=== PATIENT | female | born 1935 | race Caucasian/White ===

== ENCOUNTER 2017-01-20 11:42 | Emergency (ER) | payer MEDICARE ==
[~2017-01-20] VITALS: Ht 167.6 cm; Wt 51.3 kg
[~2017-01-20 11:42] MED LIST: LEVO.075 PO; MACR100C37 PO
[2017-01-20 12:00] VITALS: BP 106/47; PULSE 68; RESP 18; TEMP 97.7; O2SAT 96
[2017-01-20] MEDS ORDERED: LEVO75TA3 PO (12:09)
[2017-01-20] MEDS ORDERED: VENTAER INH (12:24)
[2017-01-20] MEDS ORDERED: ZITHTAB PO (12:24)
--- NOTE | 2017-01-20 12:26 | PD ---
HPI Chief Complaint: Cold / Flu Symptoms Time Seen by Provider: 12:03 Travel History International Travel<30 days: No Contact w/Intl Traveler<30days: No Traveled to known affect area: No History of Present Illness HPI This patient complains of cough. She is has some congestion. Denies fever or chest pain. She is a lifelong smoker. He denies history of lung disease. Severity is mild PFSH Past Medical History Diminished Hearing: No Immunizations Current: Yes Thyroid Disease: Yes Tetanus Vaccination: > 5 Years Influenza Vaccination: No ?: Not Menopausal: Yes Past Surgical History Appendectomy: Yes Social History Alcohol Use: No Tobacco Use: Yes Substance Use: No Allergies-Medications (Allergen,Severity, Reaction): Coded Allergies: No Known Allergies (Unverified , 01/20/17) Reported Meds & Prescriptions Reported Meds & Active Scripts Active Reported Levothyroxine (Levothyroxine Sodium) 75 Mcg Tab 75 Mcg PO DAILY Review of Systems General / Constitutional: No: Fever HENT: No: Headaches Respiratory: Positive: Cough Gastrointestinal: No: Vomiting Physical Exam Narrative GENERAL: Well-nourished, well-developed patient in no apparent distress. SKIN: Focused skin assessment reveals no rash and nodules. Skin is Warm and dry. HEAD: Atraumatic. Normocephalic. EYES: Pupils equal and round. No scleral icterus. No injection or drainage. ENT: No nasal bleeding or discharge. Mucous membranes pink and moist. NECK: Trachea midline. No JVD. CARDIOVASCULAR: Regular rate and rhythm. No murmur appreciated. RESPIRATORY: No accessory muscle use. Clear to auscultation. Breath sounds equal bilaterally. GASTROINTESTINAL: Abdomen soft, non-tender, nondistended. Hepatic and splenic margins not palpable. MUSCULOSKELETAL: No obvious deformities. No clubbing. No cyanosis. No edema. NEUROLOGICAL: Awake and alert. No obvious cranial nerve deficits. Motor grossly within normal limits. Normal speech. PSYCHIATRIC: Appropriate mood and affect; insight and judgment normal. Data Data Last Documented VS Vital Signs Date Time Temp Pulse Resp B/P Pulse Ox O2 Delivery O2 Flow Rate FiO2 01/20/17 12:05 80 16 96 Room Air 01/20/17 12:00 97.7 106/47 MDM Medical Decision Making Medical Screen Exam Complete: Yes Emergency Medical Condition: Yes Medical Record Reviewed: Yes Differential Diagnosis Bronchitis, COPD, pneumonia Narrative Course I have reviewed the patient's electronic medical record. I suspect this patient has some degree of COPD given her lifelong smoking. She likely has bronchitis on top of that. I wrote her an albuterol inhaler and a Zithromax course. She should follow-up with her physician and should stop her smoking Diagnosis Primary Impression: Bronchitis Additional Instructions: Stop smoking. The patient was advised to follow up with their physician and return if they worsen. Med/Other Pt SpecificInfo: Prescription(s) given Scripts Albuterol 18 GM Inh (Ventolin Hfa 18 GM Inh)90 Mcg/Act Aer2 Puff INH Q4H PRN ( SHORTNESS OF BREATH) #1 INHALER Ref 0 Prov:Ciro Vanessa MD 01/20/17 Azithromycin (Zithromax Z-Justo)250 Mg [id number] Mg PO DIRECTED #1 DSPK Ref 0 500 MG (2 tabs) day 1, then 1 tab days 2-5. Prov:Ciro Vanessa MD 01/20/17 Disposition: 01 DISCHARGE HOME Condition: Stable Ciro Vanessa MD Jan 20, 2017 12:26
== END 2017-01-20 12:32 | disposition home or self-care (01) ==
LOC: PHED 11:42
DX: J40 Bronchitis, not specified as acute or chronic (principal); Z72.0 Tobacco use
CPT/HCPCS: 99283

== ENCOUNTER 2017-04-17 16:55 | Emergency (ER) | payer MEDICARE ==
[~2017-04-17 16:55] MED LIST changes: -LEVO.075 PO; +LEVO75TA3 PO; -MACR100C37 PO; +VENTAER INH; +ZITHTAB PO
[2017-04-17 17:03] VITALS: BP 125/64; PULSE 76; RESP 20; TEMP 98.3; O2SAT 98
[2017-04-17] MEDS ORDERED: BACT400T PO (17:21)
--- NOTE | 2017-04-17 17:22 | PD ---
HPI Chief Complaint: Cash Clerk Problem/Complaint Time Seen by Provider: 17:05 Travel History International Travel<30 days: No Contact w/Intl Traveler<30days: No Traveled to known affect area: No History of Present Illness HPI The patient is a 82-year-old female who presents to the emergency department for vaginal discomfort. The patient has a history of previous cystocele/latter prolapse and had a pessary at one time, however, remove it several years ago. Over the last several days the patient has been getting up around the house and ambulating, has had some increased discomfort in the vaginal area with pressure. The patient saw her primary physician who diagnosed a UTI, without performing a UA, placed her on Bactrim. However, the patient now has increasing pressure and feels that there is something coming out of the vagina when she is ambulatory, very similar to her previous cystocele. The patient denies any nausea, vomiting, diarrhea, or change in bowel patterns. PFSH Past Medical History Diminished Hearing: No Immunizations Current: Yes Thyroid Disease: Yes Influenza Vaccination: No ?: Not Menopausal: Yes Past Surgical History Appendectomy: Yes Social History Alcohol Use: No Tobacco Use: Yes (10/10 PPD) Substance Use: No Allergies-Medications (Allergen,Severity, Reaction): Coded Allergies: No Known Allergies (Unverified , 01/20/17) Reported Meds & Prescriptions Reported Meds & Active Scripts Active Ventolin Hfa 18 GM Inh (Albuterol Sulfate) 90 Mcg/Act Aer 2 Puff INH Q4H PRN Reported Bactrim (Sulfamethoxazole-Trimethoprim) 400-80 Mg Tab 1 Tab PO BID Levothyroxine (Levothyroxine Sodium) 75 Mcg Tab 75 Mcg PO DAILY Review of Systems Except as stated in HPI: all other systems reviewed are Neg Cardiovascular: No: Chest Pain or Discomfort Respiratory: No: Shortness of Breath Gastrointestinal: No: Nausea, Vomiting, Diarrhea, Abdominal Pain, Constipation Genitourinary: Positive: Other (as noted in the history of present illness) Physical Exam Narrative GENERAL: Awake, alert, nontoxic-appearing 82-year-old female who appears her stated age and is in no acute respiratory distress. SKIN: Focused skin assessment warm/dry. HEAD: Atraumatic. Normocephalic. EYES: No injection or drainage. ENT: No nasal bleeding or discharge. Mucous membranes pink and moist. NECK: Trachea midline. No JVD. GASTROINTESTINAL: Abdomen soft, non-tender, nondistended. No rebound tenderness. Pelvic exam: Exam was performed in the presence of a female nurse. When the patient areas down, there is visible protrusion of the bladder at the introitus consistent with cystocele. MUSCULOSKELETAL: No obvious deformities. No clubbing. No cyanosis. No edema. NEUROLOGICAL: Awake and alert. No obvious cranial nerve deficits. Motor grossly within normal limits. Normal speech. PSYCHIATRIC: Appropriate mood and affect; insight and judgment normal. Data Data Last Documented VS Vital Signs Date Time Temp Pulse Resp B/P Pulse Ox O2 Delivery O2 Flow Rate FiO2 04/17/17 17:03 98.3 76 20 125/64 98 Orders Urinalysis - C+S If Indicated (04/17/17 17:20) Labs Laboratory Tests Test 04/17/17 17:35 Urine Color YELLOW Urine Turbidity CLEAR Urine pH 6.0 Urine Specific [place] 1.010 Urine Protein NEG mg/dL Urine Glucose (UA) NEG mg/dL Urine Ketones NEG mg/dL Urine Occult Blood MOD Urine Nitrite NEG Urine Bilirubin NEG Urine Leukocyte Esterase MOD Urine RBC 0-3 /hpf Urine WBC 6-8 /hpf Urine Squamous Epithelial 0-5 /hpf Cells Urine Mucus FEW /lpf Microscopic Urinalysis Comment CULT NOT INDICATED MDM Medical Decision Making Medical Screen Exam Complete: Yes Emergency Medical Condition: Yes Medical Record Reviewed: Yes Interpretation(s) Laboratory Tests Test 04/17/17 17:35 Urine Color YELLOW Urine Turbidity CLEAR Urine pH 6.0 Urine Specific [place] 1.010 Urine Protein NEG mg/dL Urine Glucose (UA) NEG mg/dL Urine Ketones NEG mg/dL Urine Occult Blood MOD Urine Nitrite NEG Urine Bilirubin NEG Urine Leukocyte Esterase MOD Urine RBC 0-3 /hpf Urine WBC 6-8 /hpf Urine Squamous Epithelial 0-5 /hpf Cells Urine Mucus FEW /lpf Microscopic Urinalysis Comment CULT NOT INDICATED Differential Diagnosis Differential diagnosis includes cystocele, rectocele, prolapsed uterus, UTI, pelvic floor instability. Narrative Course A pelvic exam was performed in the presence of a female nurse which reveals a cystocele. A UA was sent to lab. The patient is advised to follow-up with her primary physician for referral to gynecology for definitive management, she is also advised to perform Kegel exercises. The patient's UA has 6-8 white blood cells, small leukocyte esterase, and some blood. The patient is artery taking Bactrim and is advised to continue taking the Bactrim. She is also advised to follow-up with her primary physician for referral to school bus driver/mechanic for definitive management. Diagnosis Primary Impression: Female cystocele Patient Instructions: General Instructions Additional Instructions: Follow-up with your primary physician for referral to see gynecology. Performed Kegel exercises. Finish antibiotics as previously directed. Med/Other Pt SpecificInfo: No Change to Meds Disposition: 01 DISCHARGE HOME Condition: Stable Rusty Zarco MD Apr 17, 2017 17:22
[2017-04-17 18:12] LABS: GLUCOSE,URINE NEG (NEG); KETONE, URINE NEG (NEG); NITRITE,URINE NEG (NEG)
[2017-04-17 18:13] LABS: BLOOD, URINE MOD (NEG)
[2017-04-17 18:14] LABS: URINE COLOR YELLOW (YELLW/STRAW)
[2017-04-17 18:15] LABS: MUCUS URINE FEW /lpf (OCC)
[2017-04-17 18:16] LABS: COMMENT (UR) CULT NOT INDICATED; CULTURE IF INDICATED CULT NOT INDICATED; RBC, URINE 0-3 /hpf (0-3); SQUAMOUS EPITHELIAL CELL URINE 0-5 /hpf (0-5)
[2017-04-17 18:45] VITALS: BP 108/68
== END 2017-04-17 18:46 | disposition home or self-care (01) ==
LOC: PHED 16:55
DX: N81.10 Cystocele, unspecified (principal); E07.9 Disorder of thyroid, unspecified; F17.200 Nicotine dependence, unspecified, uncomplicated; Z87.42 Personal history of other diseases of the female genital tract
CPT/HCPCS: 81001; 99284

== ENCOUNTER → 2017-06-28 | Day surgery (SDC) | payer MEDICARE ==
[~2017-06-28] MED LIST changes: +ACETAMINOPHEN/HYDROcodone 325 MG/5 MG TAB ONE; +BACT400T PO; +BUPIVACAINE/EPINEPHRINE 0.25% 50 ML VIAL ONE; +DEXAMETHASONE SOD PHOS 4 MG/ML VIAL IV ONE; +ISOSULFAN BLUE 50 MG/5 ML VIAL SQ ONE; +LACTATED RINGER'S 1000 ML INJ 1,000 ML ONE; +LIDOCAINE HCL 1% PF 5 ML AMPULE OTHER ONE; +MEPERIDINE HCL 25 MG/ML VIAL ONE; +ONDANSETRON HCL 4 MG/2 ML VIAL IV PUSH ONE; +PROPOFOL 200 MG/20 ML AMP IV ONE; +SODIUM CHLORIDE 0.9% 20 ML VIAL ONE; -ZITHTAB PO; +ceFAZolin 2 GM PREMIX 50 ML IV SCH; +ceFAZolin 2 GM PREMIX 50 ML ONE
--- NOTE | 2017-06-28 16:07 | TN ---
cc: DENITA NASH DATE OF SURGERY: 06/28/2017 PREOPERATIVE DIAGNOSIS Invasive ductal carcinoma left breast. POSTOPERATIVE DIAGNOSIS Invasive ductal carcinoma left breast. PROCEDURE PERFORMED 1. Needle-localized left breast lumpectomy. 2. Injection and excision of left axillary sentinel node x2. 3. Placement IORT device. SURGEON Denita Nash MD. INTERNAL COMMUNICATIONS WRITER AN Abraham ANESTHESIA: General LMA COMPLICATIONS None. INDICATIONS FOR PROCEDURE: Ms. Mota is a pleasant 82 year-old female who was noted to have a mammographic abnormality, left breast. She underwent percutaneous biopsy. This was found to be invasive ductal carcinoma. She underwent MRI which showed a very small lesion in the central left breast. She was seen and evaluated and offered lumpectomy. She was then referred to Dr. Franklin where she was considered for whole breast radiation versus partial breast radiation versus intraoperative radiation. She was felt to be a good candidate for intraoperative radiation. The patient and family agreed. She was referred back and surgery was scheduled. DETAILS: The patient was identified, brought to the operating room, placed supine on the operating room table. After adequate general anesthesia was achieved with LMA, the left breast and axilla was prepped and draped in standard surgical fashion. Five cc of isosulfan blue was injected in the periareolar space as well as along the wire localization which occurred the medial left breast at the 9 o'clock position. This was then massaged in the breast. The probe was used to localize the approximate location of the sentinel node. The had been confirmed by radiology and had been marked on the skin. 0.25 percent Marcaine was injected and a transverse incision was made. Dissection was carried down through subcutaneous tissue into the axilla proper. Immediately we identified a blue channel which led directly to a blue node. This was confirmed by the probe to be the sentinel node. An Allis clamp was used to excise the node and surrounding fatty tissue. It was then excised and checked and found an ex vivo count of 688. It was labeled sentinel node #1, blue, count 688. The probe was then reintroduced to the axilla. There was a moderate amount of activity just superior to the initial node. There was no other blue dye that we could appreciate. The two enlarged nodes were identified and grasped with Allis clamp and excised together. These were checked and found to have a 10 second count of 466. They were labeled sentinel node #2, not blue count, 466. Once we did this there was no other significant activity in the axilla. By direct palpation there were no palpable nodes. By direct visualization, I could appreciate no other blue dye. At this point I felt confident we had the sentinel nodes of the left axilla. The wound was copiously irrigated with normal saline solution. It was injected with 10 cc of local anesthetic and then closed in two layers using a 3-0 and 4-0 Vicryl. Attention was now directed to the left breast. The patient had a Y-localization at the 9 o'clock position of the left breast. 0.25% Marcaine was injected and a transverse incision was made directly along the wire. Subcutaneous skin flaps were then raised in all directions. Using a generous margin of breast tissue, all breast tissue was excised down to the level of the base of the wire, with generous margins especially toward the tip of the wire where the lesion was located. It should be noted that the posterior margin was the pectoralis fascia. The specimen was then excised, labeled a short stitch superior, long stitch medial and the wire demarcating the lateral position. The specimen was sent to radiology where Dr. Caldwell called back stating that the mass and clip were present within the specimen. The wound was then copiously irrigated with normal saline solution. Because of the patient's small breasts and the small lumpectomy cavity, we elected to use a 3.5 IORT catheter. This was sized for the cavity and found to be appropriate. A 0-Prolene pursestring suture was then placed along the superior portion of the breast tissue in order to pull it up over the probe. We then checked all margins which were all greater than 7.5 millimeters in all directions. This was then confirmed a second time. The probe was then hooked up to the IORT device and the pursestring suture was then tightened down. We then again checked the margins after the catheter was in place and they were all greater than 7.5 millimeters. The patient then underwent approximately 16-minutes of IORT by Dr. Franklin. Please see his procedure notes for the details. Once this was completed the probe was then removed. The lumpectomy cavity was copiously irrigated with normal saline solution and then closed in two layers using a 3-0 and 4-0 Vicryl. 10 cc of local anesthetic was injected into the lumpectomy cavity. Sterile dressings were applied. The patient was awakened and brought to recovery in stable condition. Please note the , assistant real estate manager, was medically necessary due to the complexity of the procedure. She also has extensive knowledge of my surgical technique. MD HEVER Diaz/CHARLES /2:56 PM /3:06 PM
== END | disposition home or self-care (01) ==
LOC: ESDC 08:09
PROVIDERS: ATTEND Surgery Trauma Surgery
DX: C50.912 Malignant neoplasm of unspecified site of left female breast (principal)
CPT/HCPCS: 00400; 01610; 19125; 38525; 38792; 77290; 77300; 77334; 77370; 77424; 88307; J0690; J1100; J2175; J2405; J3010; J7120; Q9968; 77469

== ENCOUNTER → 2017-07-06 | Day surgery (SDC) | payer MEDICARE ==
[~2017-07-06] MED LIST changes: -ACETAMINOPHEN/HYDROcodone 325 MG/5 MG TAB ONE; -BUPIVACAINE/EPINEPHRINE 0.25% 50 ML VIAL ONE; +BUPIVACAINE/EPINEPHRINE 0.5% PF 10 ML VIAL ONE; -DEXAMETHASONE SOD PHOS 4 MG/ML VIAL IV ONE; -ISOSULFAN BLUE 50 MG/5 ML VIAL SQ ONE; -LIDOCAINE HCL 1% PF 5 ML AMPULE OTHER ONE; -MEPERIDINE HCL 25 MG/ML VIAL ONE; +PROPOFOL 100 MG/10 ML INJ IV ONE; -PROPOFOL 200 MG/20 ML AMP IV ONE; -SODIUM CHLORIDE 0.9% 20 ML VIAL ONE; -ceFAZolin 2 GM PREMIX 50 ML IV SCH
--- NOTE | 2017-07-06 14:38 | TN ---
cc: DENITA NASH M.D. DATE OF SURGERY: 07/06/2017 PREOPERATIVE DIAGNOSIS Positive superior margin status post left breast lumpectomy with intraoperative radiation therapy for left breast cancer. POSTOPERATIVE DIAGNOSIS Positive superior margin status post left breast lumpectomy with intraoperative radiation therapy for left breast cancer. PROCEDURE PERFORMED Re-excision lumpectomy. SURGEON Dentia Nash MD ANESTHESIA General LMA. COMPLICATIONS None. INDICATION FOR PROCEDURE Ms. Mota is a pleasant 82-year-old female who underwent a needle-localized left breast lumpectomy with intraoperative radiation therapy last week for a 7 mm breast cancer. She was found to have a positive superior margin. It was recommended that she have a re-excision lumpectomy. Risks and benefits of re-excision lumpectomy was discussed with her as well as her and they were agreeable. DETAILS OF PROCEDURE The patient was identified, brought to the operating room and placed supine on the operating table. After adequate general anesthesia was achieved with LMA the anterior chest was prepped and draped in standard surgical fashion. 0.25% Marcaine was injected in the skin and subcutaneous tissue around the previous lumpectomy incision which was at the 9 o'clock position. The previous lumpectomy incision was then excised with a generous elliptical incision. Subcutaneous flaps were then raised superiorly where the positive margin was. We also excised the inferior flap. Medial and lateral flaps were taken straight down to the pectoralis major muscle which is where her original lumpectomy had gone to. The entire specimen lumpectomy cavity was incised in toto. A short stitch was placed superior on the skin, a large stitch was placed lateral. By palpation the superior margin was quite generous and the inferior margin was felt to be adequate. As stated the entire lumpectomy cavity was excised. It was sent to pathology for analysis. The wound was copiously irrigated with 1 liter of warm saline solution. Wound was then closed in two layers using a 3-0 and 4-0 Vicryl. 10 ccs of 0.25% Marcaine was injected into the left breast lumpectomy cavity. Sterile dressings were applied and the patient was awakened, brought to recovery in stable condition. MD HEVER Diaz/VICTOR MANUEL /2:10 PM /2:31 PM
== END | disposition home or self-care (01) ==
LOC: ESDC 11:46
PROVIDERS: ATTEND Surgery Trauma Surgery
DX: C50.912 Malignant neoplasm of unspecified site of left female breast (principal)
CPT/HCPCS: 00400; 19301; 88307; J0690; J2405; J3010; J7120

== ENCOUNTER 2017-10-08 13:02 | Emergency (ER) | payer MEDICARE ==
[~2017-10-08] VITALS: Ht 170.2 cm; Wt 54.0 kg
[~2017-10-08 13:02] MED LIST changes: -BUPIVACAINE/EPINEPHRINE 0.5% PF 10 ML VIAL ONE; -LACTATED RINGER'S 1000 ML INJ 1,000 ML ONE; -ONDANSETRON HCL 4 MG/2 ML VIAL IV PUSH ONE; -PROPOFOL 100 MG/10 ML INJ IV ONE; -ceFAZolin 2 GM PREMIX 50 ML ONE
[2017-10-08 13:25] VITALS: BP 132/68; PULSE 74; RESP 20; TEMP 98.2; O2SAT 97
[2017-10-08] MEDS ORDERED: ANAS1TAB PO (13:36)
[2017-10-08] MEDS ORDERED: MEMA28CA PO (13:36)
[2017-10-08] MEDS ORDERED: VITA100018 PO (13:36)
[2017-10-08] MEDS ORDERED: DONE5TAB7 PO (13:36)
[2017-10-08] MEDS ORDERED: RESP: ALBUTEROL 2.5 MG/IPRATROPIUM 0.5 MG NEB (SCH) NEB ONE (14:00)
[2017-10-08] MEDS ORDERED: RESP: LIDOCAINE HCL 4% PF 5 ML NEB NEB ONE (14:00)
--- NOTE | 2017-10-08 14:00 | PD ---
HPI Chief Complaint: Cold / Flu Symptoms Time Seen by Provider: 13:34 Travel History International Travel<30 days: No Contact w/Intl Traveler<30days: No Traveled to known affect area: No History of Present Illness HPI The patient is a 82-year-old female who presents emergency department for a week and a half of cough. The patient has had a mostly dry nonproductive cough, occasionally has white sputum, frontal week and a half. The patient denies any shortness of breath, chest pain, or fever. She does complain of postnasal drip. states the patient has a history of breast cancer, underwent lumpectomy and is now currently on chemotherapy. The patient is followed by her medical oncologist, Dr. Soriano as well as her general surgeon, Dr. Meek Serna. The patient denies any history of COPD, tobacco use, or congestive heart failure. She denies any recent upper respiratory infections or significant nasal congestion, but does note postnasal drip. Symptoms are mild without any alleviating or exacerbating factors. PFSH Past Medical History Dementia: Yes Diminished Hearing: No Immunizations Current: Yes Thyroid Disease: Yes Tetanus Vaccination: Unknown Influenza Vaccination: No ?: Not Menopausal: Yes Past Surgical History Appendectomy: Yes Other Surgery: Yes (left breast sx 2017) Social History Alcohol Use: No Tobacco Use: Yes (1/2 PPD) Substance Use: No Allergies-Medications (Allergen,Severity, Reaction): Coded Allergies: No Known Allergies (Unverified Adverse Reaction, Unknown, 10/08/17) Reported Meds & Prescriptions Reported Meds & Active Scripts Active Reported Vitamin D3 (Cholecalciferol) 1,000 Unit Tab 1,000 Units PO DAILY Anastrozole 1 Mg Tab 1 Mg PO DAILY Donepezil 5 Mg Tab 5 Mg PO HS Namenda Xr (Memantine) 28 Mg Caper 28 Mg PO DAILY Levothyroxine (Levothyroxine Sodium) 75 Mcg Tab 75 Mcg PO DAILY Review of Systems Except as stated in HPI: all other systems reviewed are Neg General / Constitutional: No: Fever HENT: Positive: Other (postnasal drip) Cardiovascular: No: Chest Pain or Discomfort Respiratory: Positive: Cough, No: Shortness of Breath Gastrointestinal: No: Nausea, Vomiting Neurologic: Positive: Other Physical Exam Narrative GENERAL: Awake, alert, pleasant 82-year-old female who appears her stated age and is in no acute respiratory distress. SKIN: Focused skin assessment warm/dry. HEAD: Atraumatic. Normocephalic. EYES: Pupils equal and round. No scleral icterus. No injection or drainage. ENT: No nasal bleeding or discharge. Oropharynx reveals cobblestoning without exudate, consistent with postnasal drip. NECK: Trachea midline. No JVD. CARDIOVASCULAR: Regular rate and rhythm. No murmur appreciated. RESPIRATORY: No accessory muscle use. Clear to auscultation. Breath sounds equal bilaterally. No audible wheezes, rale's, rhonchi. MUSCULOSKELETAL: No obvious deformities. No clubbing. No cyanosis. No edema. NEUROLOGICAL: Awake and alert. No obvious cranial nerve deficits. Motor grossly within normal limits. Normal speech. Follows commands. Polite in conversation. PSYCHIATRIC: Appropriate mood and affect; insight and judgment normal. Data Data Last Documented VS Vital Signs Date Time Temp Pulse Resp B/P (MAP) Pulse Ox O2 Delivery O2 Flow Rate FiO2 10/08/17 14:35 75 20 114/61 (78) 99 Aerosol Mask 10/08/17 13:25 98.2 Orders Orders Albuterol-Ipratropium Neb (Duoneb Neb) (10/08/17 14:00) Lidocaine Pf 4% Neb (Lidocaine Pf 4% Neb (10/08/17 14:00) Chest, Single Ap (10/08/17 ) [facility] Medical Decision Making Medical Screen Exam Complete: Yes Emergency Medical Condition: Yes Medical Record Reviewed: Yes Interpretation(s) Last Impressions Chest X-Ray 10/08/17 0000 Signed Impressions: Service Date/Time: Sunday, October 08, 2017 14:25 - CONCLUSION: No acute cardiopulmonary process. Markos Adams MD Differential Diagnosis Differential diagnosis includes postnasal drip, GERD, bronchitis, pneumonia, URI. Narrative Course A chest x-ray was obtained. The patient was administered DuoNeb 1 with respiratory lidocaine. The patient's chest x-rays unremarkable. The patient has bronchitis versus postnasal drip. The patient is immunocompromised, on chemotherapy for breast cancer, therefore, will be placed on Zithromax. I will hold on steroids, will write Phenergan With Codeine as needed for cough. She is also advised she may take a Claritin daily for 7-10 days for the postnasal drip, however, I did have a discussion that this was an anticholinergic medicine and may counteract the patient's medicines for dementia. The patient will be provided a copy of her x-ray results at discharge. She is stable for outpatient follow-up. Diagnosis Primary Impression: Bronchitis Patient Instructions: General Instructions Additional Instructions: Medications as directed. Please provide the patient copy of her x-ray results at discharge. Follow-up with her primary physician. Return if symptoms worsen or progress. Med/Other Pt SpecificInfo: Prescription(s) given Scripts Promethazine-Codeine Liq (Promethazine-Codeine Liq) 6.25-10 Mg/5 Ml Syrp 5 ML PO Q6H Y for COUGH AND/OR COLD SYMPTOMS, #120 ML 0 Refills Prov: Rusty Zarco MD 10/08/17 Azithromycin (Zithromax Z-Justo) 250 Mg Dspk 250 MG PO DIRECTED for Infection, #1 DSPK 0 Refills 500 MG (2 tabs) day 1, then 1 tab days 2-5. Prov: Rusty Zarco MD 10/08/17 Disposition: 01 DISCHARGE HOME Condition: Stable Rusty Zarco MD Oct 08, 2017 14:00
[2017-10-08 14:35] VITALS: BP 114/61; PULSE 75; RESP 20; O2SAT 99
--- NOTE | 2017-10-08 14:47 | RADRPT ---
EXAM DATE/TIME: 10/08/2017 14:25 [facility] COMPARISON: No previous studies available for comparison. INDICATIONS : Cough MEDICAL HISTORY : None. SURGICAL HISTORY : None. ENCOUNTER: Initial ACUITY: 2 days PAIN SCORE: 0/10 LOCATION: Bilateral chest FINDINGS: A single view of the chest demonstrates the lungs to be symmetrically aerated without evidence of mas s, infiltrate or effusion. The cardiomediastinal contours are unremarkable. There is a levocurvature of the thoracolumbar region. The bones appear osteopenic. There are high right humeral head is seen with rotator cuff abnormalities bilaterally. CONCLUSION: No acute cardiopulmonary process. Markos Adams MD on October 08, 2017 at 14:44 Board Certified Radiologist. This report was verified electronically.
[2017-10-08] MEDS ORDERED: PROM6.256 PO (15:07)
[2017-10-08] MEDS ORDERED: ZITHTAB PO (15:07)
== END 2017-10-08 15:47 | disposition home or self-care (01) ==
LOC: PHED 13:02
DX: J40 Bronchitis, not specified as acute or chronic (principal); F03.90 Unspecified dementia, unspecified severity, without behavioral disturbance, psychotic disturbance, mood disturbance, and anxiety; C50.912 Malignant neoplasm of unspecified site of left female breast; F17.210 Nicotine dependence, cigarettes, uncomplicated; E07.9 Disorder of thyroid, unspecified
CPT/HCPCS: 71010; 94664; 99284